=== PATIENT | female | born 1940 | race Caucasian/White ===

== ENCOUNTER 2020-04-12 17:58 | Emergency (ER) | payer MEDICARE ==
--- NOTE | 2020-04-12 18:44 | RAD ---
3 VIEWS left [facility] RADIOGRAPHIC SERIES. INDICATIONS: Left lower extremity pain and swelling. COMPARISONS: No comparisons are available. FINDINGS: No fractures or dislocations. No radiopaque soft tissue foreign bodies or soft tissue gas. 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 IMPRESSION: Normal for age examination. Electronically signed by: Nasim Zuluaga MD 04/12/2020 6:43 PM CDT
[2020-04-12 19:49] VITALS: BP 133/61; O2SAT 96
--- NOTE | 2020-04-12 20:01 | ED.PDOC ---
History of Present Illness - General Chief Complaint: Trauma Stated Complaint: Fall with L leg pain Time Seen by Provider: 04/12/20 18:17 Source: patient, RN notes reviewed, Vital Signs reviewed Exam Limitations: no limitations - History of Present Illness Initial Comments: Patient is a 79-year-old white female who tripped and fell and injured her left mora. There was no loss of consciousness. Patient was able to ambulate after the incident. Patient complains of a throbbing pain in her left anterior mora. It is constant. Moderate in intensity. There is no radiation. Nothing seems to make it better or worse. Timing/Duration: 1-3 hours Severity: moderate Improving Factors: nothing Worsening Factors: nothing Associated Symptoms: denies symptoms Allergies/Adverse Reactions: Allergies Penicillins Allergy (Verified 04/12/20 18:36) Review of Systems - Review of Systems Constitutional: States: no symptoms reported, see HPI. Denies: chills, fever EENTM: States: no symptoms reported. Denies: eye pain, blurred vision, double vision Respiratory: States: no symptoms reported. Denies: cough, short of breath Cardiology: States: no symptoms reported. Denies: chest pain, palpitations, syncope Gastrointestinal/Abdominal: States: no symptoms reported. Denies: abdominal pain, diarrhea, nausea, vomiting Genitourinary: States: no symptoms reported Musculoskeletal: States: see HPI, other - Left anterior mora pain and swelling.. Denies: back pain, neck pain Skin: States: other - Patient with an abrasion to left mora. 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 Hx Hypertension: Yes Hx Thyroid Disease: Yes - Hypo Hx Diabetes: Yes Hx Cancer: No Surgical History: cholecystectomy, Hysterectomy, other - Vaccination History Hx Influenza Vaccination: Yes Hx Pneumococcal Vaccination: Yes - Social History Hx Tobacco Use: No Hx Alcohol Use: No Hx Substance Use: No Hx Substance Use Treatment: No Hx Depression: No - Female History Patient is a Female of Child Bearing Age (10 -59 yrs old): No Patient : No Family Medical History - Family History Mother Family History: Unknown Living Status: Unknown Physical Exam - Physical Exam General Appearance: Alert, Comfortable, Well Developed, Well Groomed, Well Hydrated, Well Nourished Eye Exam: bilateral normal Ears, Nose, Throat: hearing grossly normal, normal pharynx Neck: non-tender, full range of motion, supple, normal inspection Respiratory: chest non-tender, lungs clear, normal breath sounds, no respiratory distress Cardiovascular/Chest: normal peripheral pulses, regular rate, rhythm, no edema Peripheral Pulses: dorsalis pedis,right: 2+, dorsalis pedis,left: 2+, posterior tibialis,right: 2+, posterior tibialis,left: 2+ Gastrointestinal/Abdominal: normal bowel sounds, non tender, soft Back Exam: normal inspection, no CVA tenderness, no vertebral tenderness Extremity: normal capillary refill, swelling - Along anterior left mora with associated abrasion. 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 Lymphatic: no adenopathy Progress - Progress Progress: Differential diagnosis: Abrasion, fracture, hematoma, contusion among others. 04/12/20 20:03 X-ray of the left tib-fib is within normal limits. There are no fractures. There is mild edema and swelling on x-ray. Patient given instructions for RICE. Patient voices understanding and agreement with discharge home and the plan of care. Plan discharge home at this time. Luis West M.D. #[id number] - Results/Orders Results/Orders: 3 VIEWS left [facility] RADIOGRAPHIC SERIES. INDICATIONS: Left lower extremity pain and swelling. COMPARISONS: No comparisons are available. FINDINGS: No fractures or dislocations. No radiopaque soft tissue foreign bodies or soft tissue gas. 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 IMPRESSION: Normal for age examination. Electronically signed by: Nasim Zuluaga MD 04/12/2020 6:43 PM CDT Departure - Departure Clinical Impression: Contusion of skin Fall Qualifiers: Encounter type: initial encounter Qualified Code(s): W19.XXXA - Unspecified fall, initial encounter Abrasion hip/leg Qualifiers: Encounter type: initial encounter Laterality: left Qualified Code(s): S80.812A - Abrasion, left lower leg, initial encounter Time of Disposition: 20:05 Disposition: Discharge to Home or Self Care Condition: Good Departure Forms: ED Discharge - Pt. Copy, Patient Portal Self Enrollment Instructions: DI for Trauma, Skin Abrasions (DC), Contusion (DC) Diet: resume usual diet Activity: ambulate only with walker Comments: Patient to follow-up with PCP within the next 1 to 5 days.
[2020-04-12] MEDS ORDERED: TETANUS,DIPHTHERIA,PERTUSSIS 1 EA SYG IM ONE (20:10)
[2020-04-12 20:30] VITALS: TEMP 98.7
== END 2020-04-12 20:20 | disposition home or self-care (01) ==
LOC: ER 17:58
DX: S80.812A Abrasion, left lower leg, initial encounter (principal); S80.12XA Contusion of left lower leg, initial encounter; I10 Essential (primary) hypertension; I25.2 Old myocardial infarction; E11.9 Type 2 diabetes mellitus without complications; Z95.5 Presence of coronary angioplasty implant and graft; W01.0XXA Fall on same level from slipping, tripping and stumbling without subsequent striking against object, initial encounter; Y92.9 Unspecified place or not applicable

== ENCOUNTER 2020-08-10 05:09 | Day surgery (SDC) | payer MEDICARE ==
[2020-08-10] MEDS ORDERED: MOXIFLOXACIN HCL (OPHTH) 1 DROP DROPS ONE (07:00)
[2020-08-10] MEDS ORDERED: TROP1%/CYCLOPEN 1%/PHENYL 2.5% DROPS ONE (07:00)
[2020-08-10] MEDS ORDERED: PROPARACAINE 0.5% OPHTH SOL 15 ML BTTL ONE (07:00)
== END 2020-08-10 07:23 | disposition home or self-care (01) ==
LOC: AMB 05:09
PROVIDERS: ATTEND Ophthalmology
DX: E11.36 Type 2 diabetes mellitus with diabetic cataract (principal); H26.492 Other secondary cataract, left eye

== ENCOUNTER → 2020-10-23 | Outpatient (CLI) | payer MEDICARE | LOC: YCFC.O 16:28 | PROVIDERS: ATTEND Nurse Practitioner Family | DX: I25.10 Atherosclerotic heart disease of native coronary artery without angina pectoris (principal); I10 Essential (primary) hypertension; E11.9 Type 2 diabetes mellitus without complications; R35.8 Other polyuria; Z86.39 Personal history of other endocrine, nutritional and metabolic disease ==

== ENCOUNTER → 2020-12-30 | Outpatient (CLI) | payer MEDICARE | LOC: YCFC.O 14:05 | PROVIDERS: ATTEND Nurse Practitioner Family | DX: E03.9 Hypothyroidism, unspecified (principal) ==